=== PATIENT | male | born 1970 | race Caucasian/White ===

== ENCOUNTER → 2016-09-20 | Outpatient (CLI) | payer BC ==
[2016-09-20 10:23] LABS: BUN/CREATININE RATIO 18 (0-10)
== END ==
LOC: LAB 09:18
PROVIDERS: Emergency Medicine
DX: E11.9 Type 2 diabetes mellitus without complications (principal); R10.2 Pelvic and perineal pain; R05 Cough; I10 Essential (primary) hypertension
CPT/HCPCS: 36415; 80053; 80061; 83704

== ENCOUNTER → 2017-03-22 | Outpatient (CLI) | payer BC ==
[2017-03-22 10:39] LABS: HEMOGLOBIN 17.5 gm/dl (14.0-17.5); RED BLOOD COUNT 5.84 M/UL (4.20-5.50); WHITE BLOOD COUNT 6.6 K/UL (4.5-11.0)
[2017-03-22 10:52] LABS: BUN/CREATININE RATIO 23 (0-10)
== END ==
LOC: LAB 09:28
PROVIDERS: Nurse Practitioner
DX: E11.8 Type 2 diabetes mellitus with unspecified complications (principal); I10 Essential (primary) hypertension; M54.5 Low back pain; G47.33 Obstructive sleep apnea (adult) (pediatric); I25.10 Atherosclerotic heart disease of native coronary artery without angina pectoris; E11.65 Type 2 diabetes mellitus with hyperglycemia; R53.83 Other fatigue
CPT/HCPCS: 36415; 80053; 80061; 82043; 82570; 84443; 84550; 85027

== ENCOUNTER → 2020-08-10 | Outpatient (CLI) | payer OTHER ==
[~2020-08-10] MED LIST: AUGMENTIN 875-1 EACH PO; MUCINEX1200 MG PO
[2020-08-10 11:44] LABS: HEMOGLOBIN 16.8 gm/dl (14.0-17.5); RED BLOOD COUNT 5.47 M/UL (4.20-5.50)
[2020-08-10 12:07] LABS: BUN/CREATININE RATIO 26 (0-10)
[2020-08-11 12:13] LABS: CREATININE, URINE 85.7 mg/dL (Not Estab.); MICROALB/CREAT RATIO <4 (0-29)
[2020-08-12 11:13] LABS: CHOLESTEROL, TOTAL 117 mg/dL (100-199); HDL SIZE 8.6 nm (>=9.2); HDL-C 40 mg/dL (>39); LARGE HDL-P 2.3 umol/L (>=4.8); LARGE VLDL-P 2.7 nmol/L (<=2.7); LDL-C 55 mg/dL (0-99); LDL-P 752 nmol/L (<1000); LP-IR SCORE 73 (<=45); SMALL LDL-P 492 nmol/L (<=527); TRIGLYCERIDES 124 mg/dL (0-149); VLDL SIZE 51.2 nm (<=46.6)
== END ==
LOC: LAB 10:34
PROVIDERS: Emergency Medicine
DX: E11.65 Type 2 diabetes mellitus with hyperglycemia (principal); G47.13 Recurrent hypersomnia; G47.33 Obstructive sleep apnea (adult) (pediatric); G56.02 Carpal tunnel syndrome, left upper limb; I25.10 Atherosclerotic heart disease of native coronary artery without angina pectoris; I10 Essential (primary) hypertension; J39.8 Other specified diseases of upper respiratory tract; M54.5 Low back pain; R05 Cough; R10.2 Pelvic and perineal pain; R53.83 Other fatigue; S39.012D Strain of muscle, fascia and tendon of lower back, subsequent encounter; X58.XXXD Exposure to other specified factors, subsequent encounter
CPT/HCPCS: 36415; 80053; 82043; 82570; 83036; 84550; 85025

== ENCOUNTER → 2020-09-22 | Outpatient (CLI) | payer OTHER | LOC: LAB 12:52 | DX: J20.9 Acute bronchitis, unspecified (principal); R06.02 Shortness of breath; I10 Essential (primary) hypertension; R05 Cough; R53.83 Other fatigue; J39.8 Other specified diseases of upper respiratory tract | CPT/HCPCS: 36415; 83880; 85379 ==

== ENCOUNTER → 2020-09-24 | Outpatient (CLI) | payer OTHER | LOC: KOH-I 12:42 | DX: R05 Cough (principal); I10 Essential (primary) hypertension; R53.83 Other fatigue; J20.9 Acute bronchitis, unspecified; R06.02 Shortness of breath | CPT/HCPCS: 71046 ==

== ENCOUNTER → 2021-02-01 | Outpatient (CLI) | payer OTHER | LOC: KOH-I 11:14 | DX: M13.851 Other specified arthritis, right hip (principal) | CPT/HCPCS: 73502 ==

== ENCOUNTER → 2021-04-05 | Outpatient (CLI) | payer OTHER ==
[2021-04-05 12:36] LABS: HEMOGLOBIN 17.2 gm/dl (14.0-17.5); RED BLOOD COUNT 5.56 M/UL (4.20-5.50); WHITE BLOOD COUNT 6.3 K/UL (4.5-11.0)
[2021-04-05 13:01] LABS: BUN/CREATININE RATIO 18 (0-10)
[2021-04-07 13:13] LABS: CHOLESTEROL, TOTAL 123 mg/dL (100-199); HDL SIZE 8.6 nm (>=9.2); HDL-C 41 mg/dL (>39); HDL-P (TOTAL) 32.5 umol/L (>=30.5); LARGE HDL-P 3.8 umol/L (>=4.8); LARGE VLDL-P 1.4 nmol/L (<=2.7); LDL SIZE 19.9 nm (>20.5); LDL SIZE 19.9 nm (>=20.8); LDL-C 62 mg/dL (0-99); LDL-P 859 nmol/L (<1000); LP-IR SCORE 56 (<=45); SMALL LDL-P 567 nmol/L (<=527); TRIGLYCERIDES 108 mg/dL (0-149); VLDL SIZE 45.4 nm (<=46.6)
== END ==
LOC: LAB 10:44
PROVIDERS: Emergency Medicine
DX: I10 Essential (primary) hypertension (principal); E11.65 Type 2 diabetes mellitus with hyperglycemia; R53.83 Other fatigue; J20.9 Acute bronchitis, unspecified
CPT/HCPCS: 36415; 80053; 80061; 82043; 83036; 83704; 84550; 85025